=== PATIENT | male | born 1965 | race American Indian/Alaskan Native ===

== ENCOUNTER 2017-12-17 09:18 | Emergency (ER) | payer SELFPAY ==
[2017-12-17 10:01] VITALS: BP 134/82
[2017-12-17] MEDS ORDERED: DECADRON IM ONE (11:18)
[2017-12-17] MEDS ORDERED: NORCO 7.5/325 PO ONE (11:18)
--- NOTE | 2017-12-17 11:23 | Emergency Department Report ---
ED General Adult HPI - General Chief complaint: Pain General Stated complaint: GOUT Time Seen by Provider: 12/17/17 10:57 Source: patient Mode of arrival: Ambulatory Limitations: No Limitations - History of Present Illness Initial comments: This is a 52-year-old male nontoxic, well nourished in appearance, no acute signs of distress presents to the ED with c/o of bilateral ankle and great toe swelling and pain. Patient denies any trauma to the area. Patient states he has history of gout and has similar symptoms but has not been taking his colchicine due to no coverage with insurance. Patient denies any joint redness , fever, chills, nausea, vomiting, headache or stiff neck. Patient denies any chest pain or shortness of breath. Patient denies any allergies. Past medical history includes gout and hypertension. -: days(s) (1) Location: lower extremity Radiation: non-radiation Severity scale (0 -10): 8 Quality: aching Consistency: constant Improves with: none Worsens with: none Associated Symptoms: denies other symptoms. denies: confusion, chest pain, cough, diaphoresis, fever/chills, headaches, loss of appetite, malaise, nausea/ vomiting, rash, seizure, shortness of breath, syncope, weakness Treatments Prior to Arrival: none - Related Data Previous Rx's Medication Instructions Recorded Last Taken Type HYDROcodone/APAP 10-325 [[employer] 1 each PO Q6HR PRN #20 tablet 03/25/14 Unknown Rx 10-325 mg TAB] Probenecid/Colchicine 1 each PO DAILY PRN #7 tablet 03/21/16 Unknown Rx [Probenecid-Colchicine Tab] Ibuprofen [Motrin 800 MG tab] 800 mg PO Q8HR PRN #30 tablet 07/10/16 Unknown Rx Indomethacin Sr (Nf) [Indocin Sr 75 mg PO Q12HR PRN #20 capsule 07/10/16 Unknown Rx (Nf)] amLODIPine [Norvasc] 5 mg PO DAILY #30 tab 07/10/16 Unknown Rx predniSONE [Deltasone] 20 mg PO QDAC PRN #5 tablet 07/10/16 Unknown Rx Prednisone [predniSONE 10 mg 10 mg PO .TAPER #1 tab.ds.pk 12/17/17 Unknown Rx (6-Day Pack, 21 Tabs)] traMADol [Ultram] 50 mg PO Q6HR PRN #15 tablet 12/17/17 Unknown Rx Allergies Allergy/AdvReac Type Severity Reaction Status Date / Time No Known Allergies Allergy Verified 01/14/14 11:04 ED Review of Systems ROS: Stated complaint: GOUT Other details as noted in HPI Constitutional: denies: chills, fever Eyes: denies: eye pain, eye discharge, vision change ENT: denies: ear pain, throat pain Respiratory: denies: cough, shortness of breath, wheezing Cardiovascular: denies: chest pain, palpitations Endocrine: no symptoms reported Gastrointestinal: denies: abdominal pain, nausea, diarrhea Genitourinary: denies: urgency, dysuria Musculoskeletal: denies: back pain, joint swelling, arthralgia Skin: denies: rash, lesions Neurological: denies: headache, weakness, paresthesias Psychiatric: denies: anxiety, depression Hematological/Lymphatic: denies: easy bleeding, easy bruising ED Past Medical Hx - Past Medical History Previous Medical History?: Yes Hx Hypertension: Yes Additional medical history: gout since 2000; 2014 Diverticulitis - Surgical History Past Surgical History?: No - Social History Smoking Status: Current Some Day Smoker Substance Use Type: Alcohol, Marijuana - Medications Home Medications: Home Medications Medication Instructions Recorded Confirmed Last Taken Type HYDROcodone/APAP 10-325 [[employer] 1 each PO Q6HR PRN #20 tablet 03/25/14 05/17/15 Unknown Rx 10-325 mg TAB] Probenecid/Colchicine 1 each PO DAILY PRN #7 tablet 03/21/16 Unknown Rx [Probenecid-Colchicine Tab] Ibuprofen [Motrin 800 MG tab] 800 mg PO Q8HR PRN #30 tablet 07/10/16 Unknown Rx Indomethacin Sr (Nf) [Indocin Sr 75 mg PO Q12HR PRN #20 capsule 07/10/16 Unknown Rx (Nf)] amLODIPine [Norvasc] 5 mg PO DAILY #30 tab 07/10/16 Unknown Rx predniSONE [Deltasone] 20 mg PO QDAC PRN #5 tablet 07/10/16 Unknown Rx Prednisone [predniSONE 10 mg 10 mg PO .TAPER #1 tab.ds.pk 12/17/17 Unknown Rx (6-Day Pack, 21 Tabs)] traMADol [Ultram] 50 mg PO Q6HR PRN #15 tablet 12/17/17 Unknown Rx ED Physical Exam - General Limitations: No Limitations General appearance: alert, in no apparent distress - Head Head exam: Present: atraumatic, normocephalic - Eye Eye exam: Present: normal appearance Pupils: Present: normal accommodation - ENT ENT exam: Present: normal exam, mucous membranes moist - Neck Neck exam: Present: normal inspection, full ROM. Absent: tenderness, meningismus - Respiratory Respiratory exam: Present: normal lung sounds bilaterally. Absent: respiratory distress, wheezes, rales, rhonchi, stridor - Cardiovascular Cardiovascular Exam: Present: regular rate, normal rhythm, normal heart sounds. Absent: bradycardia, tachycardia, irregular rhythm, systolic murmur, diastolic murmur, rubs, gallop - GI/Abdominal GI/Abdominal exam: Present: soft, normal bowel sounds - Rectal Rectal exam: Present: deferred - Extremities Exam Extremities exam: Present: normal inspection, full ROM, tenderness, normal capillary refill, joint swelling. Absent: pedal edema, calf tenderness - Expanded Lower Extremity Exam Left Hip exam: Present: normal inspection (bilateral exam), full ROM Upper Leg exam: Present: normal inspection (bilateral exam), full ROM Knee exam: Present: normal inspection (bilateral exam), full ROM Lower Leg exam: Present: normal inspection (bilateral exam), full ROM. Absent: tenderness, swelling, abrasion, Jennifer's sign Ankle exam: Present: normal inspection (bilateral exam), full ROM, tenderness, swelling. Absent: abrasion, laceration, ecchymosis, deformity, crepidus, dislocation, erythema, anterior draw sign Foot/Toe exam: Present: normal inspection (bilateral exam), full ROM, tenderness , swelling. Absent: abrasion, laceration, ecchymosis, deformity, crepidus, dislocation, erythema, amputation, puncture wound, foreign body, calcaneal tenderness, tenderness at base of 5th metatarsal, nail avulsion, subungual hematoma Neuro vascular tendon exam: Present: no vascular compromise (bilateral exam). Absent: pulse deficit, abnormal cap refill, motor deficit, sensory deficit, tendon deficit, extremity cold to touch, pallor, abnormal 2-point discrimination , decreased fine/light touch, foot drop, peroneal nerve deficit Gait: Positive: observed and normal 1 - swelling with tenderness. 1 - swelling with pain - Back Exam Back exam: Present: normal inspection, full ROM - Neurological Exam Neurological exam: Present: alert, oriented X3, normal gait - Psychiatric Psychiatric exam: Present: normal affect, normal mood - Skin Skin exam: Present: warm, dry, intact, normal color. Absent: rash ED Course Vital Signs 12/17/17 09:57 Temperature 97.9 F Pulse Rate 61 Respiratory 20 Rate Blood Pressure 134/82 O2 Sat by Pulse 100 Oximetry - Reevaluation(s) Reevaluation #1: 12/17/17 11:22 Patient is speaking in full sentences with no signs of distress noted. ED Medical Decision Making - Medical Decision Making This is a 52-year-old male that presents with gout. Patient was examined by me. There is no signs of any trauma. No joint redness or warmth and size. No signs of any cellulitis. Vital signs are stable. Patient received Decadron in the ED. Patient also received [employer] and is currently present at bedside and states she will try the patient home after discharge. Patient discharged with prednisone and Ultram. Patient was referred to Follow-up with a primary care doctor in 3-5 days or if symptoms worsen and continue return to emergency room as soon as possible. At time of discharge, the patient does not seem toxic or ill in appearance. No acute signs of distress noted. Patient agrees to discharge treatment plan of care. No further questions noted by the patient. Critical care attestation.: If time is entered above; I have spent that time in minutes in the direct care of this critically ill patient, excluding procedure time. ED Disposition Clinical Impression: Gout Qualifiers: Gout site: ankle Gout etiology: unspecified cause Chronicity: chronic Laterality: right Qualified Code(s): M1A.0710 - Idiopathic chronic gout, right ankle and foot, without tophus (tophi) Disposition: - TO HOME OR SELFCARE Is pt being admited?: No Does the pt Need Aspirin: No Condition: Stable Instructions: Acute Gouty Arthritis (ED), Prednisone (By mouth), Tramadol (By mouth) Additional Instructions: Follow-up with a primary care doctor in 3-5 days or if symptoms worsen and continue return to emergency room as soon as possible. Prescriptions: Prednisone [predniSONE 10 mg (6-Day Pack, 21 Tabs)] 10 mg PO .TAPER #1 tab.ds.pk traMADol [Ultram] 50 mg PO Q6HR PRN #15 tablet PRN Reason: Pain Referrals: PRIMARY CARE, [Primary Care Provider] - 3-5 Days EJ KNAPP MD [Staff Physician] - 3-5 Days [facility] [Outside] - 3-5 Days [facility] [Outside] - 3-5 Days Forms: Work/School Release Form(ED)
== END 2017-12-17 11:36 | disposition home or self-care (01) ==
LOC: ED 09:18
DX: M1A.0710 Idiopathic chronic gout, right ankle and foot, without tophus (tophi) (principal); M25.572 Pain in left ankle and joints of left foot; M79.675 Pain in left toe(s); I10 Essential (primary) hypertension; F17.200 Nicotine dependence, unspecified, uncomplicated; F12.10 Cannabis abuse, uncomplicated
CPT/HCPCS: 96372; 99282; J1100

== ENCOUNTER 2021-08-17 07:25 | Emergency (ER) | payer SELFPAY ==
[2021-08-17 07:45] VITALS: BP 147/84
--- NOTE | 2021-08-17 09:08 | XRay Report ---
CHEST PA AND LATERAL VIEWS INDICATION: cough. COMPARISON: None. FINDINGS: Support devices: None. Heart: Within normal limits. Lungs/Pleura: There is patchy bilateral airspace disease greatest in the right upper lobe and left lo wer lobe. No pleural abnormality. IMPRESSION: 1. Bilateral pneumonia Signer Name: Gavin Henry MD Signed: 08/17/2021 9:04 AM Workstation Name: [email or web address]
--- NOTE | 2021-08-17 09:35 | Emergency Department Report ---
ED General Adult HPI - General Chief complaint: Upper Respiratory Infection Stated complaint: SICK FLU Time Seen by Provider: 08/17/21 09:00 Source: patient Mode of arrival: Ambulatory Limitations: No Limitations - History of Present Illness Initial comments: 56-year-old -[place] male patient presents with complaints of cough and fever x2 weeks. Patient states his symptoms started right after Thanksgiving. He denies any hemoptysis, shortness of breath, or chest pain. He states the highest his fever got was 100.6 and the last episode was yesterday which improves with ibuprofen per patient. He states he is not vaccinated against COVID-19. Past medical history includes gout. No leg pain/swelling, recent long travel, or history of DVT/PE per patient. Patient also reports diarrhea that resolved a few days ago. He has not been tested for COVID-19. - Related Data Previous Rx's Medication Instructions Recorded Last Taken Type HYDROcodone/APAP 10-325 [[employer] 1 each PO Q6HR PRN #20 tablet 03/25/14 Unknown Rx 10-325 mg TAB] Probenecid/Colchicine 1 each PO DAILY PRN #7 tablet 03/21/16 Unknown Rx [Probenecid-Colchicine Tab] Ibuprofen [Motrin 800 MG tab] 800 mg PO Q8HR PRN #30 tablet 07/10/16 Unknown Rx Indomethacin Sr (Nf) [Indocin Sr 75 mg PO Q12HR PRN #20 capsule 07/10/16 Unknown Rx (Nf)] amLODIPine 5 mg PO DAILY #30 tab 07/10/16 Unknown Rx predniSONE [Deltasone] 20 mg PO QDAC PRN #5 tablet 07/10/16 Unknown Rx Prednisone [predniSONE 10 mg 10 mg PO .TAPER #1 tab.ds.pk 12/17/17 Unknown Rx (6-Day Pack, 21 Tabs)] traMADoL [Ultram] 50 mg PO Q6HR PRN #15 tablet 12/17/17 Unknown Rx Famotidine [Pepcid] 40 mg PO QHS #10 tablet 07/18/18 Unknown Rx HYDROcodone/APAP 5-325 [[employer] 1 each PO Q6HR PRN #15 tablet 07/18/18 Unknown Rx 5/325] Ibuprofen [Motrin] 800 mg PO Q8HR PRN #20 tablet 07/18/18 Unknown Rx predniSONE [Deltasone] 20 mg PO QDAY #5 tab 07/18/18 Unknown Rx Acetaminophen/Codeine [Tylenol 1 tab PO Q6H PRN #14 tab 08/22/18 Unknown Rx /Codeine # 3 tab] Colchicine 0.6 mg PO Q1HR #14 tablet 08/22/18 Unknown Rx allopurinoL [Allopurinol] 300 mg PO DAILY #30 tablet 08/22/18 Unknown Rx predniSONE [Deltasone] 50 mg PO QDAY #5 tab 08/22/18 Unknown Rx Amoxicillin/Potassium Clav 1 each PO BID 10 Days #20 tablet 08/17/21 Unknown Rx [Augmentin 875-125 Tablet] Azithromycin [Zithromax Z-RADHA] 0 mg PO DAILY #6 tab 08/17/21 Unknown Rx guaiFENesin [Guaifenesin ER] 1,200 mg PO BID 7 Days #14 08/17/21 Unknown Rx tab.er.12h predniSONE [Deltasone] 20 mg PO BID 4 Days #8 tab 08/17/21 Unknown Rx Allergies Allergy/AdvReac Type Severity Reaction Status Date / Time No Known Allergies Allergy Verified 08/17/21 07:43 ED Review of Systems ROS: Stated complaint: SICK FLU Other details as noted in HPI Constitutional: chills, fever, malaise. denies: diaphoresis, weakness ENT: denies: throat pain Respiratory: cough. denies: shortness of breath Cardiovascular: denies: chest pain Gastrointestinal: as per HPI. denies: abdominal pain, nausea, vomiting Skin: denies: change in color Neurological: denies: headache Hematological/Lymphatic: denies: swollen glands ED Past Medical Hx - Past Medical History Hx Hypertension: Yes Additional medical history: gout since 2000; 2014 Diverticulitis - Social History Smoking Status: Never Smoker - Medications Home Medications: Home Medications Medication Instructions Recorded Confirmed Last Taken Type HYDROcodone/APAP 10-325 [[employer] 1 each PO Q6HR PRN #20 tablet 03/25/05/17/15 Unknown Rx 10-325 mg TAB] Probenecid/Colchicine 1 each PO DAILY PRN #7 tablet 03/21/16 Unknown Rx [Probenecid-Colchicine Tab] Ibuprofen [Motrin 800 MG tab] 800 mg PO Q8HR PRN #30 tablet 07/10/16 Unknown Rx Indomethacin Sr (Nf) [Indocin Sr 75 mg PO Q12HR PRN #20 capsule 07/10/16 Unknown Rx (Nf)] amLODIPine 5 mg PO DAILY #30 tab 07/10/16 Unknown Rx predniSONE [Deltasone] 20 mg PO QDAC PRN #5 tablet 07/10/16 Unknown Rx Prednisone [predniSONE 10 mg 10 mg PO .TAPER #1 tab.ds.pk 12/17/17 Unknown Rx (6-Day Pack, 21 Tabs)] traMADoL [Ultram] 50 mg PO Q6HR PRN #15 tablet 12/17/17 Unknown Rx Famotidine [Pepcid] 40 mg PO QHS #10 tablet 07/18/18 Unknown Rx HYDROcodone/APAP 5-325 [[employer] 1 each PO Q6HR PRN #15 tablet 07/18/18 Unknown Rx 5/325] Ibuprofen [Motrin] 800 mg PO Q8HR PRN #20 tablet 07/18/18 Unknown Rx predniSONE [Deltasone] 20 mg PO QDAY #5 tab 07/18/18 Unknown Rx Acetaminophen/Codeine [Tylenol 1 tab PO Q6H PRN #14 tab 08/22/18 Unknown Rx /Codeine # 3 tab] Colchicine 0.6 mg PO Q1HR #14 tablet 08/22/18 Unknown Rx allopurinoL [Allopurinol] 300 mg PO DAILY #30 tablet 08/22/18 Unknown Rx predniSONE [Deltasone] 50 mg PO QDAY #5 tab 08/22/18 Unknown Rx Amoxicillin/Potassium Clav 1 each PO BID 10 Days #20 tablet 08/17/21 Unknown Rx [Augmentin 875-125 Tablet] Azithromycin [Zithromax Z-RADHA] 0 mg PO DAILY #6 tab 08/17/21 Unknown Rx guaiFENesin [Guaifenesin ER] 1,200 mg PO BID 7 Days #14 08/17/21 Unknown Rx tab.er.12h predniSONE [Deltasone] 20 mg PO BID 4 Days #8 tab 08/17/21 Unknown Rx ED Physical Exam - General Limitations: No Limitations General appearance: alert, in no apparent distress - Head Head exam: Present: atraumatic, normocephalic - Eye Eye exam: Present: normal appearance - Neck Neck exam: Present: normal inspection - Respiratory Respiratory exam: Present: normal lung sounds bilaterally. Absent: respiratory distress - Cardiovascular Cardiovascular Exam: Present: regular rate, normal rhythm. Absent: systolic murmur, diastolic murmur, rubs, gallop - Neurological Exam Neurological exam: Present: alert, oriented X3 - Psychiatric Psychiatric exam: Present: normal affect, normal mood - Skin Skin exam: Present: warm, dry, intact, normal color. Absent: rash ED Course Vital Signs 08/17/21 07:44 Temperature 99.6 F Pulse Rate 83 Respiratory 14 Rate Blood Pressure 147/84 [Left] O2 Sat by Pulse 99 Oximetry ED Medical Decision Making - Lab Data Result diagrams: 08/17/21 09:19 08/17/21 09:19 Lab Results 08/17/21 08/17/21 Range/Units 09:19 09:19 WBC 4.9 (4.5-11.0) K/mm3 RBC 5.43 H (3.65-5.03) M/mm3 Hgb 15.3 H (11.8-15.2) gm/dl Hct 48.2 H (35.5-45.6) % MCV 89 (84-94) fl MCH 28 (28-32) pg MCHC 32 (32-34) % RDW 14.1 (13.2-15.2) % Plt Count 224 (140-440) K/mm3 [place] % (Auto) Patternmaker Pressure Cast Sodium 139 (137-145) mmol/L Potassium 4.2 (3.6-5.0) mmol/L Chloride 102.0 (98-107) mmol/L Carbon Dioxide 21 L (22-30) mmol/L Anion Gap 20 mmol/L BUN 11 (9-20) mg/dL Creatinine 0.7 L (0.8-1.3) mg/dL Estimated GFR > 60 ml/min BUN/Creatinine Ratio 16 % Glucose 104 H (75-100) mg/dL Calcium 9.5 (8.4-10.2) mg/dL Total Bilirubin 0.70 (0.1-1.2) mg/dL AST 54 H (5-40) units/L ALT 44 (7-56) units/L Alkaline Phosphatase 97 (35-129) units/L Total Protein 7.7 (6.3-8.2) g/dL Albumin 3.7 L (3.9-5) g/dL Albumin/Globulin Ratio 0.9 % - Medical Decision Making 56-year-old -[place] male patient presents with complaints of cough and fever x2 weeks. Patient states his symptoms started right after Thanksgiving. He denies any hemoptysis, shortness of breath, or chest pain. He states the highest his fever got was 100.6 and the last episode was yesterday which improves with ibuprofen per patient. He states he is not vaccinated against COVID-19. Past medical history includes gout. No leg pain/swelling, recent long travel, or history of DVT/PE per patient. Patient also reports diarrhea that resolved a few days ago. He has not been tested for COVID-19. Patient ambulated by this provider with pulse ox and oxygen on room air remained 94% and above with 100 foot ambulation. Patient continues to deny any shortness of breath with ambulation Chest x-ray shows bilateral pneumonia, however breath sounds are normal on exam. I suspect patient has COVID-19 pneumonia. Will treat with Augmentin and azithromycin and a few days of steroids. His vitals are within normal limits and he is well-appearing. Patient is stable for discharge home. Discussed importance of self quarantine and need for outpatient COVID-19 testing within the next 24 to 48 hours. Also discussed in detail signs and symptoms that should prompt immediate return to the ED with patient who verbalizes understanding. Patient to follow-up with his PCP in 3 to 5 days. Also recommend recheck of blood pressure with PCP. AST minimally elevated, patient to follow-up for repeat liver enzymes with his primary care provider within 2-4 weeks Critical care attestation.: If time is entered above; I have spent that time in minutes in the direct care of this critically ill patient, excluding procedure time. ED Disposition Clinical Impression: Bilateral pneumonia, Person under investigation for COVID-19 Disposition: HOME / SELF CARE / HOMELESS Is pt being admited?: No Condition: Stable Instructions: COVID-19, Community-Acquired Pneumonia, Adult, [id number], Prevent the Spread of COVID-19 if You Are Sick - CDC, Bacterial Pneumonia (ED) Additional Instructions: I recommend you take daily vitamin C and zinc Prescriptions: Amoxicillin/Potassium Clav [Augmentin 875-125 Tablet] 1 each PO BID 10 Days #20 tablet predniSONE [Deltasone] 20 mg PO BID 4 Days #8 tab guaiFENesin [Guaifenesin ER] 1,200 mg PO BID 7 Days #14 tab.er.12h Azithromycin [Zithromax Z-RADHA] 0 mg PO DAILY #6 tab Referrals: PRIMARY CARE, [Primary Care Provider] - 3-5 Days Forms: Work/School Release Form(ED)
[2021-08-17 09:57] LABS: Hematocrit 48.2 % (35.5-45.6); Hemoglobin 15.3 gm/dl (11.8-15.2); Mean Corpuscular HGB Conc 32 % (32-34); Mean Corpuscular Volume 89 fl (84-94); Platelet Count 224 K/mm3 (140-440); Red Blood Count 5.43 M/mm3 (3.65-5.03); Red Cell Distribution Width 14.1 % (13.2-15.2)
[2021-08-17 10:15] LABS: Alanine Aminotransferase 44 units/L (7-56); Albumin 3.7 g/dL (3.9-5); Blood Urea Nitrogen 11 mg/dL (9-20); Calcium 9.5 mg/dL (8.4-10.2); Hemolysis Index 2
[2021-08-17 10:22] LABS: BUN/Creatinine Ratio 16
[2021-08-17 14:46] LABS: Total Cells Counted 100
[2021-08-17 14:47] LABS: Giant Platelets Few; Platelet Estimate Consistent w Auto; RBC Morphology Normal
== END 2021-08-17 11:13 | disposition home or self-care (01) ==
LOC: ED 07:25
DX: J18.9 Pneumonia, unspecified organism (principal); Z20.822 Contact with and (suspected) exposure to COVID-19; I10 Essential (primary) hypertension; Z79.899 Other long term (current) drug therapy
CPT/HCPCS: 36415; 71046; 80053; 85007; 85025; 99283

== ENCOUNTER 2022-01-03 08:56 | Emergency (ER) | payer SELFPAY ==
[2022-01-03] MEDS ORDERED: methylPREDNISolone ACETATE 80 MG/1 ML INJ IM ONE (09:58)
[2022-01-03] MEDS ORDERED: IBUPROFEN 800 MG TAB PO ONE (09:58)
--- NOTE | 2022-01-03 10:03 | Emergency Department Report ---
ED Upper Extremity Inj HPI - General Chief Complaint: Extremity Problem,Nontraumatic Stated Complaint: GOUT/BACK PAIN Time Seen by Provider: 01/03/22 09:57 Source: patient Mode of arrival: Ambulatory Limitations: No Limitations - History of Present Illness Initial Comments: Patient is a 56-year-old male that comes to the emergency room complaining of ri ght elbow and left knee pain. Patient has a history of gout. He is nonadherent with medications because of finances. He denies fall or trauma. Patient is ambulatory, [id number] on arrival to the ER. He has no fever. Blood pressure noted to be elevated. Patient states he has not been taking his blood pressure medications due to finances. Patient denies chest pain or shortness of breath. MD Complaint: Injury to:: left, right -: Gradual, days(s) Other Extremity Injury: Elbow: Right Other Injuries: none Handedness: right Place: home Improves With: none Associated Symptoms: denies other symptoms. denies: weakness, numbness, neck pain, suspects foreign body, nausea/vomiting, heard/felt popping sensat - Related Data Previous Rx's Medication Instructions Recorded Last Taken Type Probenecid/Colchicine 1 each PO DAILY PRN #7 tablet 03/21/16 Unknown Rx [Probenecid-Colchicine Tab] predniSONE [Deltasone] 20 mg PO QDAC PRN #5 tablet 07/10/16 Unknown Rx predniSONE [Deltasone] 20 mg PO QDAY #5 tab 07/18/18 Unknown Rx Colchicine 0.6 mg PO Q1HR #14 tablet 08/22/18 Unknown Rx allopurinoL [Allopurinol] 300 mg PO DAILY #30 tablet 08/22/18 Unknown Rx predniSONE [Deltasone] 50 mg PO QDAY #5 tab 08/22/18 Unknown Rx predniSONE [Deltasone] 20 mg PO BID 4 Days #8 tab 08/17/21 Unknown Rx Colchicine 0.6 mg PO DAILY #11 01/03/22 Unknown Rx amLODIPine 5 mg PO DAILY #30 tab 01/03/22 Unknown Rx predniSONE [Deltasone] 20 mg PO DAILY #5 tablet 01/03/22 Unknown Rx traMADoL [Ultram] 50 mg PO Q6HR PRN #10 tablet 01/03/22 Unknown Rx Allergies Allergy/AdvReac Type Severity Reaction Status Date / Time No Known Allergies Allergy Verified 01/03/22 09:10 ED Review of Systems ROS: Stated complaint: GOUT/BACK PAIN Other details as noted in HPI Comment: All other systems reviewed and negative ED Past Medical Hx - Past Medical History Previous Medical History?: Yes Hx Hypertension: Yes Additional medical history: gout since 2000; 2014 Septmber Diverticulitis - Surgical History Past Surgical History?: No - Social History Smoking Status: Never Smoker Substance Use Type: Alcohol - Medications Home Medications: Home Medications Medication Instructions Recorded Confirmed Last Taken Type Probenecid/Colchicine 1 each PO DAILY PRN #7 tablet 03/21/16 Unknown Rx [Probenecid-Colchicine Tab] predniSONE [Deltasone] 20 mg PO QDAC PRN #5 tablet 07/10/16 Unknown Rx predniSONE [Deltasone] 20 mg PO QDAY #5 tab 07/18/18 Unknown Rx Colchicine 0.6 mg PO Q1HR #14 tablet 08/22/18 Unknown Rx allopurinoL [Allopurinol] 300 mg PO DAILY #30 tablet 08/22/18 Unknown Rx predniSONE [Deltasone] 50 mg PO QDAY #5 tab 08/22/18 Unknown Rx predniSONE [Deltasone] 20 mg PO BID 4 Days #8 tab 08/17/21 Unknown Rx Colchicine 0.6 mg PO DAILY #11 01/03/22 Unknown Rx amLODIPine 5 mg PO DAILY #30 tab 01/03/22 Unknown Rx predniSONE [Deltasone] 20 mg PO DAILY #5 tablet 01/03/22 Unknown Rx traMADoL [Ultram] 50 mg PO Q6HR PRN #10 tablet 01/03/22 Unknown Rx ED Physical Exam - General Limitations: No Limitations General appearance: alert, in no apparent distress - Head Head exam: Present: atraumatic, normocephalic - Eye Eye exam: Present: normal appearance - ENT ENT exam: Present: mucous membranes moist - Neck Neck exam: Present: normal inspection - Respiratory Respiratory exam: Present: normal lung sounds bilaterally. Absent: respiratory distress - Cardiovascular Cardiovascular Exam: Present: regular rate, normal rhythm. Absent: systolic murmur, diastolic murmur, rubs, gallop - GI/Abdominal GI/Abdominal exam: Present: soft, normal bowel sounds - Rectal Rectal exam: Present: deferred - Extremities Exam Extremities exam: Present: normal inspection - Expanded Upper Extremity Exam Right Elbow exam: Present: full ROM, tenderness, swelling - Expanded Lower Extremity Exam Left Knee exam: Present: full ROM, tenderness, swelling, erythema - Back Exam Back exam: Present: normal inspection - Neurological Exam Neurological exam: Present: alert, oriented X3 - Psychiatric Psychiatric exam: Present: normal affect, normal mood - Skin Skin exam: Present: warm, dry, intact, normal color. Absent: rash ED Course Vital Signs 01/03/22 01/03/22 01/03/22 09:09 10:14 10:16 Temperature 98.5 F Pulse Rate 70 Respiratory 16 16 16 Rate Blood Pressure 168/93 Blood Pressure [Left] O2 Sat by Pulse 98 97 Oximetry 01/03/22 10:27 Temperature 98.8 F Pulse Rate 58 L Respiratory 16 Rate Blood Pressure Blood Pressure 152/74 [Left] O2 Sat by Pulse 100 Oximetry ED Medical Decision Making - Medical Decision Making Vital Signs 01/03/22 01/03/22 01/03/22 09:09 10:14 10:16 Temperature 98.5 F Pulse Rate 70 Respiratory 16 16 16 Rate Blood Pressure 168/93 Blood Pressure [Left] O2 Sat by Pulse 98 97 Oximetry 01/03/22 10:27 Temperature 98.8 F Pulse Rate 58 L Respiratory 16 Rate Blood Pressure Blood Pressure 152/74 [Left] O2 Sat by Pulse 100 Oximetry Patient medicated for his gout flare. Patient educated on what causes gout. Patient has been nonadherent with his medications due to finances. I have educated patient on good Rx Patient discharged home with discharge plan of care including diet, activity, medications and follow-up. He verbalizes understanding. - Differential Diagnosis Acute on chronic gout Critical care attestation.: If time is entered above; I have spent that time in minutes in the direct care o f this critically ill patient, excluding procedure time. ED Disposition Clinical Impression: Non-adherence to medical treatment, Obesity (BMI 30-39.9) Gout Qualifiers: Gout site: elbow Gout etiology: unspecified cause Chronicity: chronic Hypertension Qualifiers: Hypertension type: unspecified Qualified Code(s): I10 - Essential (primary) hypertension Disposition: HOME / SELF CARE / HOMELESS Is pt being admited?: No Does the pt Need Aspirin: No Condition: Stable Instructions: Low-Purine Eating Plan, Hypertension (ED) Additional Instructions: Stay well-hydrated with water avoid alcohol Medications as ordered today Follow-up with primary care for ongoing gout management. This will keep coming back Use [employer] to find your medications at a reasonable cost Prescriptions: amLODIPine 5 mg PO DAILY #30 tab Colchicine 0.6 mg PO DAILY #11 predniSONE [Deltasone] 20 mg PO DAILY #5 tablet traMADoL [Ultram] 50 mg PO Q6HR PRN #10 tablet PRN Reason: Pain Referrals: ANNABELLA WILKERSON MD [Staff Physician] - 3-5 Days Time of Disposition: 10:01
[2022-01-03 10:35] VITALS: BP 152/74
== END 2022-01-03 10:26 | disposition home or self-care (01) ==
LOC: ED 08:56
DX: M10.9 Gout, unspecified (principal); M25.521 Pain in right elbow; M25.562 Pain in left knee; I10 Essential (primary) hypertension; E66.9 Obesity, unspecified; Z68.30 Body mass index [BMI] 30.0-30.9, adult; Z72.89 Other problems related to lifestyle; Z79.899 Other long term (current) drug therapy
CPT/HCPCS: 96372; 99282; J1040

== ENCOUNTER 2022-05-10 10:40 | Outpatient (CLI) | payer OTHER ==
--- NOTE | 2022-05-10 11:54 | XRay Report ---
RIGHT FOOT 2 VIEWS INDICATION / CLINICAL INFORMATION: RIGHT FOOT PAIN COMPARISON: None available. FINDINGS: BONES / JOINT(S): No acute fracture or subluxation. There is moderate degenerative change at the firs t MTP joint. SOFT TISSUES: No significant abnormality. ADDITIONAL FINDINGS: None. IMPRESSION: No acute findings. LUMBAR SPINE 3 VIEWS INDICATION: Low back pain COMPARISON: None. FINDINGS: No acute, displaced fracture is seen. Alignment is within normal limits. Disc space height is maintained. Small marginal osteophytes are noted. There is mild mid to lower lum bar facet arthropathy. SI joints are within normal limits. IMPRESSION: 1. No acute findings. 2. Degenerative changes, as above. Signer Name: Gavin Henry MD Signed: 05/10/2022 11:49 AM Workstation Name: [employer]
== END 2022-05-10 10:41 | disposition home or self-care (01) ==
LOC: XRAY 10:40
PROVIDERS: ATTEND Internal Medicine
DX: M19.071 Primary osteoarthritis, right ankle and foot (principal); M47.816 Spondylosis without myelopathy or radiculopathy, lumbar region; M25.78 Osteophyte, vertebrae
CPT/HCPCS: 72100

== ENCOUNTER 2022-05-14 10:29 | Emergency (ER) | payer SELFPAY ==
[2022-05-14 10:35] VITALS: BP 186/114
== END 2022-05-15 05:10 | disposition left against medical advice (07) ==
LOC: ED 10:29
DX: M10.9 Gout, unspecified (principal); Z53.21 Procedure and treatment not carried out due to patient leaving prior to being seen by health care provider

== ENCOUNTER 2022-05-16 08:47 | Emergency (ER) | payer SELFPAY ==
[2022-05-16 09:00] VITALS: BP 141/90
== END 2022-05-17 01:45 | disposition left against medical advice (07) ==
LOC: ED 08:47
DX: M25.512 Pain in left shoulder (principal); Z53.21 Procedure and treatment not carried out due to patient leaving prior to being seen by health care provider